=== PATIENT | female | born 1970 | race Caucasian/White ===

== ENCOUNTER → 2017-05-27 12:54 | Outpatient (CLI) | payer OTHER, SELFPAY ==
--- NOTE | 2017-05-27 13:01 | RAD_ITS ---
STUDY: X-RAY CHEST REASON FOR EXAM: Female, 46 years old. Shortness of breath TECHNIQUE: PA and lateral views of the chest. COMPARISON: None. FINDINGS: Lungs are mildly hyperinflated. There is no demonstrated pleural abnormality. Normal size heart. Normal mediastinum and judy. Normal visualized pulmonary arteries. Normal visualized aortic arch and descending thoracic aorta. Normal visualized thoracic spine. Normal visualized ribs, clavicles, and shoulders. There is no demonstrated abnormality of the visualized soft tissue structures of the upper abdomen. RAD/Chest PA and Lateral IMPRESSION: Mildly hyperinflated lungs. Lungs are clear. Electronically Signed: Federico Hood DO at 12:13 EDT Tel , Service support ,
== END ==
PROVIDERS: Family Provider Family Medicine; PCP Family Medicine; Visit Provider Family Medicine
DX: R06.02 Shortness of breath (principal)
CPT/HCPCS: 71046

== ENCOUNTER 2021-07-31 05:50 | Day surgery (SDC) | payer OTHER, SELFPAY ==
--- NOTE | 2021-07-23 10:14 | PCM.HP.BLA ---
History and Physical Date of Admission: 07/31/21 HPI: The patient is a 51 year old female presenting for pre-operative visit. She is scheduled for Hysteroscopy D&C with possible polyp resection for PMB and endometrial polyp on US on 07/31/21. Procedure discussed along with risks, benefits and complications. Other alternatives discussed for management. Consent form signed? Yes. ? ? PAST MEDICAL HISTORY PAST MEDICAL HISTORY Diagnosis Date ? Asthma 2017 ? H/O diverticulitis of colon ? ? Hirsutism 11/17/2007 ? Hypertension 2010 ? Irregular menstrual cycle ? ? Kidney stones ? ? Polycystic ovaries ? ? Vitamin D deficiency ? ? ? PAST SURGICAL HISTORY PAST SURGICAL HISTORY Procedure Laterality Date ? COLONOSCOPY FLX DX W/COLLJ SPEC WHEN PFRMD ? 05/18/12 ? Colonoscopy ? COLONOSCOPY FLX DX W/COLLJ SPEC WHEN PFRMD ? 05/22/15 ? Colonoscopy (MAC) ? COLONOSCOPY FLX DX W/COLLJ SPEC WHEN PFRMD ? 05/20/2016 ? Colonoscopy mac repeat 3 to 5 years ? COLONOSCOPY FLX DX W/COLLJ SPEC WHEN PFRMD ? 07/24/2019 ? Colonoscopy ? PAST SURGICAL HISTORY OF ? ? ? INGUINAL HERNIA REPAIR A CHILD ? PAST SURGICAL HISTORY OF ? ? ? REPAIR OF A LIP FROM A DOG BITE ? PAST SURGICAL HISTORY OF ? ? ? DERMABRASION ? PAST SURGICAL HISTORY OF ? age 20's ? LASER TREATMENT FOR HAIR GROWTH ? URETERAL ENDOSCOPY VIA URETEROST W/RMVL FB/STONE ? 02/2016 ? removed kidney stone ? ? ? CURRENT MEDICATIONS Current Outpatient Medications Medication Sig Dispense Refill ? LORazepam (ATIVAN) 0.5 mg Take by mouth three times daily as needed. ? ? ? fluticasone (FLONASE) 50 mcg/actuation nasal spray USE 2 SPRAYS IN EACH NOSTRIL ONCE DAILY. RINSE MOUTH AFTER USE. 16 mL 0 ? Cholecalciferol, Vitamin D3, 125 mcg (5,000 unit) cap TAKE 1 CAPSULE BY MOUTH EVERY DAY 90 capsule 2 ? lisinopril (ZESTRIL, PRINIVIL) 5 mg tablet Take 1 tablet by mouth once daily. 90 tablet 3 ? rosuvastatin (CRESTOR) 5 mg tablet TAKE 1 TABLET BY MOUTH EVERYDAY AT BEDTIME 30 tablet 3 ? tamsulosin (FLOMAX) 0.4 mg Take 1 capsule by mouth daily at bedtime. As needed for kidney stones 14 capsule 3 ? albuterol HFA (PROAIR HFA) 90 mcg/actuation inhaler Inhale 2 Puffs as instructed every 4 hours as needed for wheezing/shortness of breath. 36 g 3 ? fluticasone-salmeterol (WIXELA INHUB) 100-50 mcg/dose Inhale 1 Puff as instructed twice daily. 3 Inhaler 3 ? nystatin (MYCOSTATIN) 100,000 unit/mL suspension Take 5 mL by mouth four times daily. 1tsp swish in mouth for several minutes, then swallow (or expectorate) 4 times daily until gone. 200 mL 4 ? Nebulizers 1 Each as directed. Dx: moderate persistent asthma 1 Each 0 ? Nebulizer Accessories kit 1 Device as directed. Dx: moderate persistent asthma 1 Each 0 ? fexofenadine (DONNA) 60 mg tablet Take 1 tablet by mouth once daily. 90 tablet 3 ? cyanocobalamin (VITAMIN B-12) 1,000 mcg tab Take 1 tablet by mouth once daily. ? 0 ? albuterol (PROVENTIL) 2.5 mg /3 mL (0.083 %) nebulizer solution Use 3 mL via nebulizer every 4 hours as needed for Wheezing/Shortness of Breath. Use over 5-15minutes. (Patient not taking: Reported on 07/23/2021 ) 1 Package 1 ? No current facility-administered medications for this visit. ? ? ALLERGIES: Levaquin [Levofloxacin] ? PERSONAL HISTORY: SOCIAL HISTORY Social History ? Tobacco Use ? Smoking status: Former Smoker ? ? Start date: 07/06/1992 ? ? Quit date: 05/09/2010 ? ? Years since quittin.2 ? Smokeless tobacco: Never Used ? Tobacco comment: Social smoker traveling [place], closet smoker thereafter. Little smoking in childhood home. Woodburning stove in home for 8 years (few years ago), suboptimal ventilation. Vaping Use ? Vaping Use: Never used Substance Use Topics ? Alcohol use: Yes ? ? Comment: occasionally - a galss of wine a week ? Drug use: No ? FAMILY HISTORY: FAMILY HISTORY FAMILY HISTORY Adopted: Yes Problem Relation Age of Onset ? other (adopted mother) Mother ? ? None Other ? ? PATIENT IS ADOPTED DOESN'T KNOW FAM. HIST. No children. ? ? REVIEW OF SYMPTOMS: GENERAL: denies fevers or chills ENDOCRINOLOGY: has not been on steroids Cardiology : denies palpitations or chest pain Respiratory: denies SOB or cough Hematology: denies history of prolonged bleeding or easy bruising or VTE Allergy: Denies history of personal or family history of allergy to anesthesia ? ? ? PHYSICAL EXAMINATION: ? VITALS: Blood pressure 112/70, pulse 84, resp. rate 16, height 5' 2 (1.575 m), weight 149 lb (67.6 kg), last menstrual period 04/21/2021. ? GENERAL: The patient is well nourished, well hydrated in no acute distress. , The patient is oriented to time, place, and person. NECK: Supple. No lynphadenopathy, normal thyroid, no thyromegaly. LUNGS: Clear to auscultation bilaterally. no wheezes, rhonchi or rales HEART: Regular rate and rhythm, Normal heart sounds and No murmurs or gallops IMPRESSION: PMB, endometrial polyp on US ? PLAN: The risks/benefits/alternatives and personal involved for the planned Hysteroscopy D&C with polyp resection were reviewed with the patient. Her questions were answered to her satisfaction and she desires to proceed. Consent was signed. I reviewed with her postop instructions and expectations. ? ? I have reviewed and updated past medical and surgical history, medications and allergies Assessment & Plan Assessment/Plan (1) PMB (postmenopausal bleeding): (2) Endometrial polyp:
[2021-07-31 06:41] LABS: Internal QC Validated? YES +Cl - CLEAR BKGD; Pregnancy, Urine Negative Negative
[2021-07-31] MEDS: Ketorolac 30 MG/ML Syringe IV (06:51)
[2021-07-31] MEDS: Scopolamine 1mg/72hr Patch 1 PATCH TD (06:52)
[2021-07-31] MEDS: Acetaminophen 500 MG Tablet 1000 MG PO (06:52)
[2021-07-31 06:57] VITALS: BP 97/68; PULSE 73; RESP 16; TEMP 36.8; O2SAT 98; BMI 26.7
[2021-07-31 07:04] LABS: Hematocrit 42.2 % (37-47); Hemoglobin 14.6 g/dL (12.0-15.0); Mean Corp Hgb Conc 34.6 g/dL (32-36); Mean Corpuscular Hgb 31.9 pg (27.0-32.0); Mean Corpuscular Volume 92.1 fL (81-99); Mean Platelet Vol. 10.4 fl (6.2-12.0); Platelet Count 314 K/mm3 (150-450); RBC Distribution Width CV 11.6 % (11.6-14.6); RBC Distribution Width SD 39.4 fl (35.1-43.9); Red Blood Count 4.58 M/mm3 (4.2-5.4); White Blood Count 6.2 K/mm3 (4.4-11.0)
[2021-07-31] MEDS: Ipratropium/Albuterol Sulfate 3 ML AMPUL.NEB INHALATION (07:29)
--- NOTE | 2021-07-31 07:30 | EMB_PTH ---
PATIENT: JS DUDLEY LOC[place] [facility] [place][id number] AGE/SX: 51/F ROOM: RE07/31/[address]: Dr. Abi Contreras MD : 1970 BED: DIS: 07/31/2021 SPEC #: [id number] RECD: 07/31/21 10:58 STATUS: RONEL REIvis #: [id number] ROSHNI: 07/31/21 07:[address]: Abi Contreras DEPT: SURGICAL PATHOLOGY RECD BY: Cristal Grimm ENTERED: 07/31/21 11:15 SP TYPE: ENDOM BX/C OT DR: Dr. Singh Banks, DO Tissues: Endometrium, NOS Procedures: Surgery Specimen Level IV HEADER OPERATION: Hysteroscopy, D & C Symphion, polypectomy PRE-OP DIAGNOSIS: Endometrial polyp, postmenopausal bleeding TISSUE SUBMITTED: Endometrial curettings MICROSCOPIC DIAGNOSIS Endometrial curettings: Polypoid fragments of endometrial tissue with disordered proliferative endometrium to simple endometrial hyperplasia without atypia. Polypoid fragment of endocervical mucosa may represent fragments of endocervical polyp. See comment. ESSENCE:meenu 08/01/2021 COMMENT Endometrial fragments may represent fragments of polyp. Clinical correlation and appropriate follow up are necessary. MICROSCOPIC DESCRIPTION Slides are reviewed. GROSS DESCRIPTION Received in fixative is one container labeled with the patient's name and designated endometrial curettings. The specimen consists of multiple irregular fragments of cohn-pink soft tissue that in aggregate measure 2 x 1.5 x 0.1 cm. The specimen is totally submitted in one cassette. / ESSENCE:meenu 07/31/2021 TC:5 CPT: 00977
[2021-07-31] MEDS: Lactated Ringers 1,000 ML 75 ML IV (07:35)
[2021-07-31] MEDS: Lidocaine 1% /Epi 1:100 (20ml) 20 ML Vial (07:48)
--- NOTE | 2021-07-31 07:59 | PCM.DC ---
Discharge Instructions Diet Discharge Diet: No restrictions Activity May resume sexual activity in: 2 weeks Lifting Restrictions: none Dressing / Incision Call your doctor if your incision/area has: Sudden Increased Bleeding and Foul Smelling Discharge Call your doctor if you observe: Fever of 101 or Higher and Using more than 1 pad per hour (for 2 hrs in a row) Follow Up Care Please Follow Up With: Abi Contreras MD When: 2-4 weeks or as needed. Call [phone] to make an appointment or with any concerns. Test Results: Test results from this visit will be discussed in further detail at your follow-up appointment, if applicable. Discharge Plan Admission Primary Reason for Your Visit: D&C Attending Provider: Abi Contreras Primary Care Provider: Singh Banks Discharge Orders/Prescriptions Prescriptions: No Action fexofenadine [Li] 180 mg Tablet 180 mg PO DAILY RF: 0 acetaminophen [Tylenol Ex Str Rapid Release] 500 mg Tablet 500 mg PO Q6H PRN (Reason: Pain) RF: 0 Vitamin B-12 50 mcg Tablet 50 mcg PO DAILY RF: 0 lisinopril 5 mg tablet 5 mg PO DAILY RF: 0 fluticasone propion-salmeterol [Wixela Inhub] 100-50 mcg/dose blister with device 1 - 2 inh INHALATION PRN PRN (Reason: ASTHMA) RF: 0 albuterol sulfate 90 mcg/actuation HFA aerosol inhaler 1 puff INHALATION PRN PRN (Reason: ASTHMA) RF: 0 fluticasone propionate 50 mcg/actuation spray,suspension 1 spray INTRANASAL DAILY PRN (Reason: ALLERGIES) RF: 0 rosuvastatin 5 mg tablet 5 mg PO DAILY RF: 0 cholecalciferol (vitamin D3) [Vitamin D3] 50 mcg (2,000 unit) Tablet 50 mcg PO DAILY RF: 0 Referrals / Follow Up: Singh Banks DO [Primary Care Provider] - Disposition Disposition (needs filled in before D/C Order can be placed): Home, Self Care
--- NOTE | 2021-07-31 08:00 | PCM.OPRPT ---
Problems Associated Problem List Diagnoses (1) PMB (postmenopausal bleeding): (2) Endometrial polyp: Report of Operation Date of Procedure: 07/31/21 Pre-Operative Diagnosis: PMB, endometrial polyp Post-Operative Diagnosis: same Surgery/Procedure Performed:: Hysteroscopy D&C with polyp resection Description of Surgical Findings:: Normal cervix and vagina. Atrophic endometrium w/ one single polyp Surgeon: Abi Contreras compensation and benefits administrator: None Type of Anesthesia: MAC/Supplemental/Local Anesthesiologist: Sean Taylor Special Medications: none Specimen's removed: endometrial curettings Drains: none Estimated Blood Loss (mL): 5 Fluids Replaced: 900 Description of Procedure: The patient was taken to the OR where she was prepped and draped in dorsal lithotomy position. The weighted speculum was placed in the vagina and the anterior lip of the cervix was grasped with a single-tooth tenaculum. A paracervical block was administered with [1% lidocaine with 1-100,000 epinephrine solution]. The cervix was dilated serially with Hegar dilators. The Symphion hysteroscope was placed into the uterine cavity and the above findings were noted. Bilateral tubal ostia [were] identified. TheSymphion resectoscope was placed. The operative channel. It was used to remove the polyp in its entirety and do a visual D&C of the endometrium. No other focal pathology was noted. The instruments were removed from the vagina. The specimen was handed off and sent to pathology. All sponge and needle counts were correct. Vaginal sweep was performed by me. The patient was awakened and taken to the recovery room in stable condition. Hysteroscopic fluid deficit was 150 cc of normal saline Grafts/Implants Used: none Procedure Start Time: 07:48 Procedure Stop Time: 07:54 Complications none Admit VTE Documentation VTE Present on Admission: No VTE Mechan Device Prophylaxis: SCD's VTE Pharm Prophylaxis ordered?: No Reason prophylaxis not ordered:: Procedure Not Indicated
[2021-07-31 08:05] VITALS: BP 106/68; BP 97/68; PULSE 94; RESP 18; TEMP 36.5; O2SAT 94
[2021-07-31 08:10] VITALS: BP 93/75; BP 97/68; PULSE 94; RESP 18; O2SAT 93
[2021-07-31 08:15] VITALS: BP 93/64; BP 97/68; PULSE 88; RESP 18; O2SAT 94
[2021-07-31 08:20] VITALS: BP 95/67; BP 97/68; PULSE 77; RESP 18; TEMP 36.5; O2SAT 94
[2021-07-31 08:42] VITALS: BP 97/68
== END 2021-07-31 09:01 | disposition home or self-care (01) ==
LOC: SDC 05:53 → AC 05:54
PROVIDERS: PCP Student in an Organized Health Care Education/Training Program; Referring Provider Obstetrics & Gynecology; Visit Provider Obstetrics & Gynecology
PROC: 0UB98ZZ Excision of Uterus, Via Natural or Artificial Opening Endoscopic (ICD-10-PCS; CPT 58558; 2021-07-31 07:15)
DX: N84.0 Polyp of corpus uteri (principal); Z87.891 Personal history of nicotine dependence; I10 Essential (primary) hypertension; N95.0 Postmenopausal bleeding
CPT/HCPCS: 58558; 00952; 81025; 85027; 88305; J7120; J2405